=== PATIENT | male | born 1935 | race Two or more races ===

== ENCOUNTER 2018-08-27 00:15 | Emergency (ER) | payer OTHER ==
[~2018-08-27] VITALS: Ht 170.2 cm; Wt 50.8 kg
[2018-08-27] MEDS ORDERED: IPRATROPIUM BROMIDE 0.5 MG/2.5 ML NEBU NEB ONE (00:30)
[2018-08-27] MEDS ORDERED: ASPIRIN 325 MG TABLET PO ONE (00:30)
[2018-08-27] MEDS ORDERED: ALBUTEROL SULFATE 2.5 MG/3 ML NEBU NEB ONE (00:30)
[2018-08-27] MEDS ORDERED: methylPREDNISolone SOD SUCC 125 MG/2 ML VIAL IV ONE (00:30)
--- NOTE | 2018-08-27 00:30 | NUR ---
Patient bib RA100 for SOB x3 days with worsening symptoms. A/Ox4. Speech interrupted due to increased work of labor of breathing. Patient denies any chest pain or chest discomfort. No GI/ distress noted. Patient in bed at lowest position, sr upx2, call light within reach. Fall precautions implemented per protocol.
--- NOTE | 2018-08-27 00:45 | NUR ---
RT at bedside for breathing tx,
[2018-08-27] MEDS ORDERED: IPRATROPIUM BROMIDE 0.5 MG/2.5 ML NEBU ONE (00:47)
[2018-08-27] MEDS ORDERED: ALBUTEROL SULFATE 2.5 MG/3 ML NEBU ONE (00:47)
[2018-08-27] MEDS ORDERED: methylPREDNISolone SOD SUCC 125 MG/2 ML VIAL ONE (00:56)
[2018-08-27] MEDS ORDERED: ASPIRIN 325 MG TABLET ONE (00:56)
[2018-08-27 01:11] LABS: BASOPHILS # (AUTO) 0.1 K/uL (0.0-8.0); BASOPHILS % (AUTO) 0.5 % (0.0-2.0); EOSINOPHILS # (AUTO) 0.1 K/uL (0.0-0.7); EOSINOPHILS % (AUTO) 0.4 % (0.0-7.0); HEMATOCRIT 28.6 % (36.7-47.1); HEMOGLOBIN 9.2 g/dL (12.5-16.3); LYMPHOCYTES # (AUTO) 2.5 K/uL (20.0-40.0); LYMPHOCYTES % (AUTO) 13.6 % (20.5-51.5); MEAN CORPUSCULAR HEMOGLOBIN 25.6 uug (23.8-33.4); MEAN CORPUSCULAR HGB CONC 32 g/dL (32.5-36.3); MEAN CORPUSCULAR VOLUME 79.7 fL (73.0-96.2); MONOCYTES # (AUTO) 1.2 K/uL (2.0-10.0); MONOCYTES % (AUTO) 6.8 % (0.0-11.0); NEUTROPHILS # (AUTO) 14.5 K/uL (1.8-8.9); NEUTROPHILS % (AUTO) 78.7 % (38.5-71.5); PLATELET COUNT (AUTO) 403 K/uL (152-348); RED BLOOD CELL COUNT(AUTO) 3.59 MIL/uL (4.06-5.63); WHITE BLOOD COUNT (AUTO) 18.4 K/uL (3.6-10.2)
[2018-08-27] MEDS ORDERED: PIPERACILLIN/TAZOBACTAM/D5W 50 ML IV ONE (01:26)
[2018-08-27 01:28] LABS: CARBON DIOXIDE 33 mmol/L (21-32); CHLORIDE 93 mmol/L (98-107); CREATININE 0.5 mg/dL (0.6-1.3); GLUCOSE 125 mg/dL (74-106); POTASSIUM 3.9 mmol/L (3.5-5.1); UREA NITROGEN, BLOOD 10 mg/dL (7-18)
[2018-08-27] MEDS ORDERED: PIPERACILLIN SODIUM/TAZOBACTAM 3.375 G in IV DEXTROSE 5% 50 ML IV ONE (01:30)
[2018-08-27] MEDS ORDERED: VANCOMYCIN IV 1,000 MG in IV DEXTROSE 5% 250 ML IV ONE (01:30)
[2018-08-27 01:40] LABS: ALANINE AMINOTRANSFERASE 30 U/L (16-63); ALKALINE PHOSPHATASE 95 U/L (50-136); ASPARTATE AMINOTRANSFERASE 16 U/L (15-37); BILIRUBIN,DIRECT 0.1 mg/dL (0.0-0.2); BILIRUBIN,TOTAL 0.3 mg/dL (0.2-1.0); TOTAL PROTEIN, SERUM 7.8 g/dL (6.4-8.2)
[2018-08-27] MEDS ORDERED: METF-442 PO (01:50)
[2018-08-27] MEDS ORDERED: ATOR40TA PO (01:50)
[2018-08-27] MEDS ORDERED: AMLO5TAB9 PO (01:50)
[2018-08-27] MEDS ORDERED: LISI40TA4 PO (01:50)
[2018-08-27] MEDS ORDERED: HYDR59LO5 TP (01:50)
[2018-08-27] MEDS ORDERED: AZEL137S7 BNOSTRILS (01:50)
[2018-08-27] MEDS ORDERED: ALBU18HF2 INH (01:50)
[2018-08-27] MEDS ORDERED: BENZ-13 PO (01:50)
[2018-08-27] MEDS ORDERED: ASPI-605 PO (01:50)
[2018-08-27] MEDS ORDERED: POTA10TA15 PO (01:50)
[2018-08-27] MEDS ORDERED: COLC0.6C3 PO (01:50)
[2018-08-27] MEDS ORDERED: ATEN25TA PO (01:50)
[2018-08-27] MEDS ORDERED: ONDA4TAB11 PO (01:50)
[2018-08-27] MEDS ORDERED: FURO20TA4 PO (01:50)
[2018-08-27] MEDS ORDERED: VANCOMYCIN IV 200 ML ONE (02:03)
--- NOTE | 2018-08-27 02:17 | NUR ---
Contacted [facility]. Spoke to michel to coordinate care for patient. Awaiting call back from assigned [facility] physician. BILLY aware.
--- NOTE | 2018-08-27 02:21 | NUR ---
[facility]
--- NOTE | 2018-08-27 02:59 | NUR ---
Received call from Shari @ [place], pt. to be picked up by [facility] ETA [id number] for transport to [facility] - ER - [phone], admitting Jolynn Truong,
--- NOTE | 2018-08-27 03:42 | NUR ---
Report given to NELLY Gomez at [facility]
--- NOTE | 2018-08-27 04:16 | NUR ---
Patient Tranfers to outside Facility Physician: Dr. Cardona Location: [facility] : ED transport is here for patient.
== END 2018-08-27 04:20 | disposition short-term general hospital (02) ==
LOC: ER 00:19
DX: J18.9 Pneumonia, unspecified organism (principal); J44.1 Chronic obstructive pulmonary disease with (acute) exacerbation; D64.9 Anemia, unspecified; Z79.82 Long term (current) use of aspirin; Z79.899 Other long term (current) drug therapy
CPT/HCPCS: 36415; 71045; 80048; 80076; 83605; 83880; 84484; 85025; 87040 ×2; 93005; 94640; 96365; 96366; 96367; 96375; 99285; J2543; J2930; J3370; 70030-TC; A4663; J3590